=== PATIENT | female | born 1975 | race Asian ===

== ENCOUNTER 2017-05-27 15:43 | Emergency (ER) | payer OTHER ==
[2017-05-27 15:50] VITALS: BP 158/106
--- NOTE | 2017-05-27 16:05 | ED Physician Documentation ---
History of Present Illness - Stated complaint Stated Complaint: HIGH BP - Chief complaint Chief Complaint: General - History obtained from History obtained from: Patient - History of Present Illness Timing: Other (41-year-old with benign medical history was referred from the gynecology clinic for asymptomatic high blood pressure. Over the last few days has had blood pressures ranging from 140-160/100-110. There is no associated chest pain, shortness of breath, or headache.) Review of Systems Constitutional: reports: Fatigue. 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 : None HEENT: None Psych: None Musculoskeletal: None Derm: None - Past Surgical History Past Surgical History: No - Present Medications Home Medications: Ambulatory Orders Medication Instructions Recorded Confirmed No Known Home Medications [No 05/27/17 05/27/17 Known Home Medications] - Allergies Allergies/Adverse Reactions: Allergies Allergy/AdvReac Type Severity Reaction Status Date / Time No Known Drug Allergies Allergy Verified 02/07/16 00:45 - Social History Does the pt smoke?: No Smoking Status: Never smoker Does the pt drink ETOH?: No Does the pt have substance abuse?: No - Immunizations Immunizations are current?: No - POLST Patient has POLST: No PD ED PE NORMAL - Vitals Vital signs reviewed: Yes - General General: Alert and oriented X 3, No acute distress - Neck Neck: Supple, no meningeal sign, No bony TTP - Cardiac Cardiac: RRR, No murmur - Respiratory Respiratory: Clear bilaterally - Extremities Extremities: No edema, No calf tenderness / cord - Neuro Neuro: Alert and oriented X 3, Normal speech - Psych Psych: Normal mood, Normal affect Results - Vitals Vitals: Vital Signs - 24 hr 05/27/17 15:47 Temperature 36.9 C Heart Rate 99 Respiratory 18 Rate Blood Pressure 158/106 H O2 Saturation 99 Oxygen O2 Source Room air - EKG (time done) 1614 Rate: Rate (enter#) (97) Rhythm: NSR [place]: Normal Intervals: Normal [place] QRS: Normal Ischemia: Normal ST segments Computer interpretation: Agree with computer - Labs Labs: Laboratory Tests 05/27/17 05/27/17 16:19 16:19 Sodium 136 Potassium 3.4 L Chloride 101 Carbon Dioxide 24 Anion Gap 11.0 BUN 11 Creatinine 0.5 Estimated GFR (MDRD) 137 Glucose 97 Calcium 8.7 Total Bilirubin 0.6 AST 16 ALT 14 Alkaline Phosphatase 45 Total Protein 8.1 Albumin 4.5 Globulin 3.6 Albumin/Globulin Ratio 1.3 Lipase 21 L Serum HCG, Qual NEGATIVE Departure - Departure Disposition: Home, Self Care Clinical Impression: Elevated blood pressure reading Condition: Good Record reviewed to determine appropriate education?: Yes Instructions: Hypertension Control Comments: Take your blood pressure once a day for the next week or so. If it remains high follow-up with your doctor. You only need to return the emergency department if you develop significant symptoms including chest pain or trouble breathing.
[2017-05-27 16:38] LABS: ALBUMIN 4.5 g/dL (3.2-5.5); ALBUMIN/GLOBULIN RATIO 1.3 (1.0-2.2); BILIRUBIN,TOTAL 0.6 mg/dL (0.2-1.0); CALCIUM 8.7 mg/dL (8.5-10.3); CREATININE 0.5 mg/dL (0.4-1.0); TOTAL PROTEIN 8.1 g/dL (6.7-8.2)
[2017-05-27 17:15] LABS: HCG,QUALITATIVE BLOOD NEGATIVE
== END 2017-05-27 17:24 | disposition home or self-care (01) ==
LOC: ED 15:43
DX: R03.0 Elevated blood-pressure reading, without diagnosis of hypertension (principal)
CPT/HCPCS: 36415; 80053; 83690; 84703; 93005; 99282; 99283

== ENCOUNTER 2017-09-09 17:13 | Emergency (ER) | payer OTHER ==
[2017-09-09] MEDS ORDERED: SODIUM CHLORIDE 0.9% 1,000 ML IV ONE (17:28)
--- NOTE | 2017-09-09 17:43 | ED Physician Documentation ---
History of Present Illness - Stated complaint Stated Complaint: FEMALE BLEEDING/LIGHTHEADED - Chief complaint Chief Complaint: General - History obtained from History obtained from: Patient - History of Present Illness Timing: How many days ago (5) Pain level max: 0 Pain level now: 0 Improved by: nothing Worsened by: nothing - Additonal information Additional information: states heavy vaginal bleeding for 5 days. felt lightheaded today. States LMP was 4/17, then had bleeding at the end of August, but light spotting. Now heavy bleeding for 5 days. Currently feeling better. No vomting. No abd pain. No back pain. not on control. 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 : None HEENT: None Psych: None Musculoskeletal: None Derm: None - Past Surgical History Past Surgical History: No - Present Medications Home Medications: Ambulatory Orders Medication Instructions Recorded Confirmed No Known Home Medications [No 05/27/17 05/27/17 Known Home Medications] - Allergies Allergies/Adverse Reactions: Allergies Allergy/AdvReac Type Severity Reaction Status Date / Time No Known Drug Allergies Allergy Verified 02/07/16 00:45 - Social History Does the pt smoke?: No Smoking Status: Never smoker Does the pt drink ETOH?: No Does the pt have substance abuse?: No - Immunizations Immunizations are current?: No - POLST Patient has POLST: No PD ED PE NORMAL - Vitals Vital signs reviewed: Yes - General General: Alert and oriented X 3, No acute distress - HEENT HEENT: PERRL, Moist mucous membranes - Neck Neck: Supple, no meningeal sign - Cardiac Cardiac: RRR, Strong equal pulses - Respiratory Respiratory: No respiratory distress, Clear bilaterally - Abdomen Abdomen: Soft, Non tender, Non distended - Female Female : Pt declined - Derm Derm: Warm and dry - Extremities Extremities: No edema - Neuro Neuro: Alert and oriented X 3 - Psych Psych: Normal mood, Normal affect Results - Vitals Vitals: Vital Signs - 24 hr 09/09/17 09/09/17 09/09/17 17:20 17:48 19:35 Temperature 36.8 C 36.9 C 37.0 C Heart Rate 103 H 100 94 Respiratory 18 18 16 Rate Blood Pressure 131/75 H 131/91 H 122/86 H O2 Saturation 100 100 100 Oxygen O2 Source Room air - Labs Labs: Laboratory Tests 09/09/17 09/09/17 09/09/17 17:45 17:46 17:46 WBC 8.7 RBC 3.14 L Hgb 10.3 L Hct 29.8 L MCV 94.9 MCH 32.7 H MCHC 34.5 RDW 12.1 Plt Count 370 MPV 8.2 Neut # (Auto) 4.7 Lymph # (Auto) 3.3 [place] # (Auto) 0.5 Eos # (Auto) 0.2 Baso # (Auto) 0.1 Absolute Nucleated RBC 0.00 Nucleated RBC % 0.0 Sodium Potassium Chloride Carbon Dioxide Anion Gap BUN Creatinine Estimated GFR (MDRD) Glucose Calcium Total Bilirubin AST ALT Alkaline Phosphatase Total Protein Albumin Globulin Albumin/Globulin Ratio Lipase Urine Color RED/BLOODY Urine Clarity BLOODY Urine pH 5.0 Ur Specific [place] >=1.030 H Urine Protein 30 H Urine Glucose (UA) NEGATIVE Urine Ketones NEGATIVE Urine Occult Blood LARGE H Urine Nitrite NEGATIVE Urine Bilirubin NEGATIVE Urine Urobilinogen 0.2 (NORMAL) Ur Leukocyte Esterase NEGATIVE Urine RBC TNTC H Urine WBC 0-3 Ur Squamous Epith Cells RARE Squamous Urine Bacteria None Seen Ur Microscopic Review INDICATED Urine Culture Comments NOT INDICATED Urine HCG, Qual NEGATIVE Blood Type AB POSITIVE Antibody Screen NEGATIVE 09/09/17 17:46 WBC RBC Hgb Hct MCV MCH MCHC RDW Plt Count MPV Neut # (Auto) Lymph # (Auto) [place] # (Auto) Eos # (Auto) Baso # (Auto) Absolute Nucleated RBC Nucleated RBC % Sodium 135 Potassium 3.6 Chloride 101 Carbon Dioxide 26 Anion Gap 8.0 BUN 11 Creatinine 0.7 Estimated GFR (MDRD) 92 Glucose 115 H Calcium 8.7 Total Bilirubin 0.4 AST 19 ALT 17 Alkaline Phosphatase 44 Total Protein 7.2 Albumin 3.7 Globulin 3.5 Albumin/Globulin Ratio 1.1 Lipase 34 Urine Color Urine Clarity Urine pH Ur Specific [place] Urine Protein Urine Glucose (UA) Urine Ketones Urine Occult Blood Urine Nitrite Urine Bilirubin Urine Urobilinogen Ur Leukocyte Esterase Urine RBC Urine WBC Ur Squamous Epith Cells Urine Bacteria Ur Microscopic Review Urine Culture Comments Urine HCG, Qual Blood Type Antibody Screen PD MEDICAL DECISION MAKING - ED course Complexity details: reviewed results, re-evaluated patient, considered differential, d/w patient, d/w family ED course: Patient is a 42-year-old female with dysfunctional uterine bleeding. Bleeding decreased in the emergency department and she declines a pelvic examination at this time. Mild anemia, but not close to transfusion levels. No recurrent lightheadedness or dizziness. We did discuss starting possible progesterone to help with the bleeding, she declines this at this time. 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 Patient counseled regarding signs and symptoms for which I believe and urgent re-evaluation would be necessary. Patient with good understanding of and agreement to plan and is comfortable going home at this time This document was made in part using voice recognition software. While efforts are made to proofread this document, sound alike and grammatical errors may occur. - Sepsis Event Vital Signs: Vital Signs - 24 hr 09/09/17 09/09/17 09/09/17 17:20 17:48 19:35 Temperature 36.8 C 36.9 C 37.0 C Heart Rate 103 H 100 94 Respiratory 18 18 16 Rate Blood Pressure 131/75 H 131/91 H 122/86 H O2 Saturation 100 100 100 Oxygen O2 Source Room air Departure - Departure Disposition: 01 Home, Self Care Clinical Impression: Dysfunctional uterine bleeding Condition: Good Instructions: ED Bleed Irregular Vaginal Follow-Up: your,doctor in 3 days if not better [Other] Comments: The bleeding should decrease over the next few days. Return if you worsen including worsening lightheadedness, any difficulty walking or breathing. Follow-up closely with your doctor. Discharge Date/Time: 09/09/17 19:35
[2017-09-09 17:52] LABS: BILIRUBIN,URINE NEGATIVE (NEGATIVE); GLUCOSE, URINE (UA) NEGATIVE (NEGATIVE); KETONES,URINE (UA) NEGATIVE (NEGATIVE); LEUKOCYTE ESTERASE, URINE NEGATIVE (NEGATIVE); NITRITE,URINE NEGATIVE (NEGATIVE); OCCULT BLOOD,URINE LARGE (NEGATIVE); PROTEIN,URINE 30 mg/dL (NEGATIVE); UROBILINOGEN,URINE 0.2 (NORMAL) E.U./dL (NORMAL)
[2017-09-09 17:55] LABS: CLARITY,URINE BLOODY (CLEAR); HCG UR QUAL NEGATIVE
[2017-09-09 17:58] LABS: BACTERIA,URINE None Seen /HPF (None Seen); RBC,URINE TNTC /HPF (0-5); SQUAMOUS EPITHELIAL CELL,UR RARE Squamous (<= Few)
[2017-09-09 18:06] LABS: BASOPHILS # (AUTO) 0.1 10^3/uL (0.0-0.1); BASOPHILS % (AUTO) 0.7 %; EOSINOPHILS # (AUTO) 0.2 10^3/uL (0.0-0.7); EOSINOPHILS % (AUTO) 2.3 %; HGB - HEMOGLOBIN 10.3 g/dL (12.0-16.0); LYMPHOCYTES # (AUTO) 3.3 10^3/uL (1.5-3.5); MEAN CORPUSCULAR HEMOGLOBIN 32.7 pg (27.0-31.0); MEAN CORPUSCULAR HGB CONC 34.5 g/dL (32.0-36.0); MEAN CORPUSCULAR VOLUME 94.9 fL (81.0-99.0); MEAN PLATELET VOLUME 8.2 fL (7.9-10.8); MONOCYTES # (AUTO) 0.5 10^3/uL (0.0-1.0); MONOCYTES % (AUTO) 5.3 %; NEUTROPHILS # (AUTO) 4.7 10^3/uL (1.5-6.6); NEUTROPHILS % (AUTO) 53.7 %; PLT - PLATELET COUNT 370 10^3/uL (130-450); RED BLOOD COUNT 3.14 10^6/uL (4.20-5.40); RED CELL DISTRIBUTION WIDTH 12.1 % (12.0-15.0); WHITE BLOOD COUNT 8.7 x10^3/uL (4.8-10.8)
[2017-09-09 18:18] LABS: ALBUMIN 3.7 g/dL (3.2-5.5); ALBUMIN/GLOBULIN RATIO 1.1 (1.0-2.2); BILIRUBIN,TOTAL 0.4 mg/dL (0.2-1.0); CALCIUM 8.7 mg/dL (8.5-10.3); CREATININE 0.7 mg/dL (0.4-1.0); TOTAL PROTEIN 7.2 g/dL (6.7-8.2)
[2017-09-09 19:36] VITALS: BP 122/86
== END 2017-09-09 19:35 | disposition home or self-care (01) ==
LOC: ED 17:13
DX: N93.8 Other specified abnormal uterine and vaginal bleeding (principal); J45.909 Unspecified asthma, uncomplicated
CPT/HCPCS: 36415; 80053; 81001; 81003; 81025; 83690; 85025; 86850; 86900; 86901; 87086; 96360; 99283

== ENCOUNTER 2018-06-19 12:21 | Emergency (ER) | payer OTHER ==
[2018-06-19 14:37] LABS: HGB - HEMOGLOBIN 12.4 g/dL (12.0-16.0); MEAN CORPUSCULAR HEMOGLOBIN 32.4 pg (27.0-31.0); MEAN CORPUSCULAR HGB CONC 34.8 g/dL (32.0-36.0); MEAN CORPUSCULAR VOLUME 93.1 fL (81.0-99.0); MEAN PLATELET VOLUME 8.1 fL (7.9-10.8); RED BLOOD COUNT 3.82 10^6/uL (4.20-5.40); RED CELL DISTRIBUTION WIDTH 11.8 % (12.0-15.0)
[2018-06-19 14:57] LABS: HCG,QUALITATIVE BLOOD NEGATIVE
[2018-06-19] MEDS ORDERED: SODIUM CHLORIDE 0.9% 1,000 ML IV ONE (16:53)
[2018-06-19] MEDS ORDERED: KETOROLAC 15 MG/ML VIAL IVP STA (16:54)
[2018-06-19 17:08] LABS: BILIRUBIN,URINE NEGATIVE (NEGATIVE); GLUCOSE, URINE (UA) NEGATIVE (NEGATIVE); KETONES,URINE (UA) NEGATIVE (NEGATIVE); LEUKOCYTE ESTERASE, URINE NEGATIVE (NEGATIVE); NITRITE,URINE NEGATIVE (NEGATIVE); OCCULT BLOOD,URINE MODERATE (NEGATIVE); PH,URINE 6.5 PH (5.0-7.5); PROTEIN,URINE NEGATIVE (NEGATIVE); UROBILINOGEN,URINE 0.2 (NORMAL) E.U./dL (NORMAL)
[2018-06-19 17:17] LABS: CLARITY,URINE CLEAR (CLEAR)
[2018-06-19 17:20] LABS: BACTERIA,URINE None Seen /HPF (None Seen); RBC,URINE None Seen /HPF (0-5); SQUAMOUS EPITHELIAL CELL,UR RARE Squamous (<= Few)
[2018-06-19 17:26] LABS: ALBUMIN 4.3 g/dL (3.2-5.5); ALBUMIN/GLOBULIN RATIO 1.3 (1.0-2.2); BILIRUBIN,TOTAL 0.6 mg/dL (0.2-1.0); CALCIUM 8.7 mg/dL (8.5-10.3); CREATININE 0.6 mg/dL (0.4-1.0); TOTAL PROTEIN 7.5 g/dL (6.7-8.2)
--- NOTE | 2018-06-19 19:25 | ED Physician Documentation ---
PD HPI FEMALE - Stated complaint Stated Complaint: FEMALE /BLEEDING - Chief complaint Chief Complaint: Abd Pain - Additional information Additional information: 42-year-old female presents the emergency department with vaginal bleeding which she describes is very heavy. Patient does have a history of recurrent heavy vaginal bleeding but today was worse. The patient denies weakness, dizziness or lightheadedness. No other associated symptoms. The patient has had some suprapubic cramping. Symptoms are described as moderate. The patient denies any new sexual contacts or concerns for sexually transmitted disease. Review of Systems Constitutional: denies: Fever, Chills Eyes: denies: Discharge Ears: denies: Ear pain Nose: denies: Congestion Throat: denies: Sore throat Cardiac: denies: Chest pain / pressure Respiratory: denies: Cough GI: denies: Abdominal Pain : reports: Hematuria. 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 : None HEENT: None Psych: None Musculoskeletal: None Derm: None - Past Surgical History Past Surgical History: No - Present Medications Home Medications: Ambulatory Orders Medication Instructions Recorded Confirmed Lisinopril 1 tab ORAL DAILY 06/19/18 06/19/18 - Allergies Allergies/Adverse Reactions: Allergies Allergy/AdvReac Type Severity Reaction Status Date / Time No Known Drug Allergies Allergy Verified 06/19/18 13:23 - Social History Does the pt smoke?: No Smoking Status: Never smoker Does the pt drink ETOH?: No Does the pt have substance abuse?: No - Immunizations Immunizations are current?: No - POLST Patient has POLST: No PD ED PE NORMAL - General General: Alert and oriented X 3, No acute distress - HEENT HEENT: Atraumatic, PERRL, EOMI, Ears normal - Neck Neck: Supple, no meningeal sign - Cardiac Cardiac: RRR, Strong equal pulses - Respiratory Respiratory: No respiratory distress - Abdomen Abdomen: Soft, Non tender - Female Female : Other (There appears to be a IUD string out of the cervix, there is no bleeding from the cervix presently. There is blood in the vaginal vault. No active bleeding.) - Derm Derm: Normal color - Extremities Extremities: No deformity - Neuro Neuro: Alert and oriented X 3, Normal speech - Psych Psych: Normal affect Results - Vitals Vitals: Vital Signs - 24 hr 06/19/18 06/19/18 06/19/18 13:19 16:19 19:09 Temperature 37 C Heart Rate 100 110 H 82 Respiratory 16 18 16 Rate Blood Pressure 133/89 H 149/100 H 109/79 O2 Saturation 100 100 100 Oxygen O2 Source Room air - Labs Labs: Laboratory Tests 06/19/18 06/19/18 06/19/18 14:25 14:25 16:53 WBC 8.0 RBC 3.82 L Hgb 12.4 Hct 35.5 L MCV 93.1 MCH 32.4 H MCHC 34.8 RDW 11.8 L Plt Count 329 MPV 8.1 Sodium Potassium Chloride Carbon Dioxide Anion Gap BUN Creatinine Estimated GFR (MDRD) Glucose Calcium Total Bilirubin AST ALT Alkaline Phosphatase Total Protein Albumin Globulin Albumin/Globulin Ratio Lipase Serum HCG, Qual NEGATIVE Urine Color LT. YELLOW Urine Clarity CLEAR Urine pH 6.5 Ur Specific [place] <=1.005 Urine Protein NEGATIVE Urine Glucose (UA) NEGATIVE Urine Ketones NEGATIVE Urine Occult Blood MODERATE H Urine Nitrite NEGATIVE Urine Bilirubin NEGATIVE Urine Urobilinogen 0.2 (NORMAL) Ur Leukocyte Esterase NEGATIVE Urine RBC None Seen Urine WBC 0-3 Ur Squamous Epith Cells RARE Squamous Urine Bacteria None Seen Ur Microscopic Review INDICATED Urine Culture Comments NOT INDICATED 06/19/18 17:08 WBC RBC Hgb Hct MCV MCH MCHC RDW Plt Count MPV Sodium 138 Potassium 3.7 Chloride 104 Carbon Dioxide 26 Anion Gap 8.0 BUN 10 Creatinine 0.6 Estimated GFR (MDRD) 110 Glucose 111 H Calcium 8.7 Total Bilirubin 0.6 AST 16 ALT 14 Alkaline Phosphatase 45 Total Protein 7.5 Albumin 4.3 Globulin 3.2 Albumin/Globulin Ratio 1.3 Lipase 31 Serum HCG, Qual Urine Color Urine Clarity Urine pH Ur Specific [place] Urine Protein Urine Glucose (UA) Urine Ketones Urine Occult Blood Urine Nitrite Urine Bilirubin Urine Urobilinogen Ur Leukocyte Esterase Urine RBC Urine WBC Ur Squamous Epith Cells Urine Bacteria Ur Microscopic Review Urine Culture Comments - Rads (name of study) US Pelvic Radiology: Final report received, See rad report (IMPRESSION: 1. Normal thickness endometrium with no IUD identified. 2. Heterogeneous uterus with multiple fibroids. ) PD MEDICAL DECISION MAKING - ED course ED course: Presently, the patient appears appropriate for discharge with ongoing outpatient management. I [place] The patient understands and agrees. I discussed warning signs and recommended returning to the emergency department for any worsening or concerns. Departure - Departure Disposition: Home, Self Care Clinical Impression: Vaginal bleeding, Fibroids Condition: Good Instructions: ED Fibroids, ED Bleed Irregular Vaginal Follow-Up: TIFFANY Yates [Provider Group] - Within 1 week (Please follow-up with your primary care and [place] of your symptoms) Comments: Please return to the emergency department for any worsening or any concerns
--- NOTE | 2018-06-19 19:28 | Ultrasound Report ---
Reason: pelvic pain, vaginal bleeding Procedure Date: 06/19/2018 Accession Number: [id number] / [id number] Procedure: US - Pelvic w/Transvag+Doppler Comp CPT Code: FULL RESULT: EXAM: PELVIC ULTRASOUND EXAM DATE: 06/19/2018 05:41 PM. CLINICAL HISTORY: Pelvic pain. Vaginal bleeding. Mirena placed 7 months ago. COMPARISON: None. TECHNIQUE: Realtime transabdominal pelvic scan performed to identify the uterus and adnexa and as an overview of other pelvic structures, followed by transvaginal scan to provide greater detail of the uterus and adnexa, with static image documentation. FINDINGS: Uterus: 8.7 x 4.7 x 6.2 cm, volume 132 cc. Anteverted position. Normal overall size . Heterogeneous echotexture. Masses: Fibroids, right fundal anechoic with halo 1.6 x 1.6 x 2.0 cm, posterior hypoechoic with echogenic foci 1.1 x 0.7 x 0.9 cm, anterior fundal left 1.9 x 1.3 x 1.7 cm. Endometrium: 7 mm. Normal. No IUD identified. Cervix: Unremarkable. Right Ovary: 2.8 x 1.5 x 2.2 cm, volume 4.8 cc. Normal echotexture and blood flow. Left Ovary: 2.7 x 1.5 x 1.9 cm, volume 4.0 cc. Normal echotexture and blood flow. Free Fluid: Small amount. Other: Extrauterine cyst posterior to the lower uterine segment 0.8 x 0.8 x 0.9 cm. IMPRESSION: 1. Normal thickness endometrium with no IUD identified. 2. Heterogeneous uterus with multiple fibroids. RADIA
[2018-06-19 20:27] VITALS: BP 126/82
== END 2018-06-19 20:28 | disposition home or self-care (01) ==
LOC: ED 12:21
DX: N93.9 Abnormal uterine and vaginal bleeding, unspecified (principal); D25.9 Leiomyoma of uterus, unspecified; Z97.5 Presence of (intrauterine) contraceptive device
CPT/HCPCS: 36415; 76830; 76856; 80053; 81001; 81003; 83690; 84703; 85027; 87086; 93975; 96361; 96374; 99283; 99284

== ENCOUNTER 2018-09-06 21:13 | Emergency (ER) | payer OTHER ==
--- NOTE | 2018-09-06 21:30 | ED Physician Documentation ---
PD HPI CHEST PAIN - Stated complaint Stated Complaint: CHEST PAIN - Chief complaint Chief Complaint: Cardiac - History obtained from History obtained from: Patient - History of Present Illness Timing - onset: Today (this morning) Timing - onset during: Rest Timing - duration: Hours Timing - details: Gradual onset Pain level now: 6 Quality: Pain Location: Left chest Radiation: Left upper extremity Improved by: Nothing Worsened by: Other (no exacerbating factors) Associated symptoms: Shortness of air. No: Diaphoresis, Nausea, Vomiting, General Weakness, Palpitations, Cough Similar symptoms before: Has not had sx before Recently seen: Not recently seen - Additional information Additional information: episodic left chest pain, described as pressure but at times burning, since approximately 10 AM. Initial episode was while eating breakfast, but she has had this discomfort recurrently during the day, sometimes radiating to LUE and associated with dyspnea. No exertional component. Denies h/o similar discomfort. She took Gaviscon this evening thinking it could be heartburn but there was no change in symptoms. Review of Systems Constitutional: reports: Reviewed and negative Eyes: reports: Reviewed and negative Ears: reports: Reviewed and negative Nose: reports: Reviewed and negative Throat: reports: Reviewed and negative Cardiac: reports: Chest pain / pressure. denies: Palpitations, Pedal edema, Calf pain Respiratory: reports: Dyspnea. 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 : None HEENT: None Psych: None Musculoskeletal: None Derm: None - Past Surgical History Past Surgical History: No - Present Medications Home Medications: Ambulatory Orders Medication Instructions Recorded Confirmed Lisinopril 20 mg ORAL DAILY 06/19/18 06/19/18 - Allergies Allergies/Adverse Reactions: Allergies Allergy/AdvReac Type Severity Reaction Status Date / Time No Known Drug Allergies Allergy Verified 09/06/18 23:00 - Social History Does the pt smoke?: No Smoking Status: Never smoker Does the pt drink ETOH?: No Does the pt have substance abuse?: No - Immunizations Immunizations are current?: No - POLST Patient has POLST: No PD ED PE NORMAL - Vitals Vital signs reviewed: Yes - General General: Alert and oriented X 3, No acute distress, Well developed/nourished - HEENT HEENT: Moist mucous membranes - Neck Neck: Supple, no meningeal sign - Cardiac Cardiac: RRR, No murmur, No gallop, No rub - Respiratory Respiratory: No respiratory distress, Clear bilaterally - Abdomen Abdomen: Soft, Non tender - Back Back: No CVA TTP - Derm Derm: Normal color, Warm and dry - Extremities Extremities: No edema Results - Vitals Vitals: Vital Signs - 24 hr 09/06/18 09/06/18 09/06/18 21:16 21:27 22:02 Temperature 36.6 C Heart Rate 97 100 74 Respiratory 16 18 14 Rate Blood Pressure 170/96 H 115/58 L O2 Saturation 100 100 09/06/18 09/06/18 09/07/18 22:59 23:32 00:04 Temperature 36.6 C Heart Rate 78 97 100 Respiratory 17 19 21 Rate Blood Pressure 112/77 144/97 H 132/96 H O2 Saturation 100 100 100 Oxygen O2 Source Room air - EKG (time done) No standard instances Rate: Rate (enter#) (97) Rhythm: NSR [place]: Normal Intervals: Normal [place] QRS: Normal Ischemia: Normal ST segments, T wave inversion (V2-V4) Compare to prior EKG: Changed from prior EKG (T wave inversions are new compared to May 2017 EKG) - Labs Labs: Laboratory Tests 09/06/18 09/06/18 09/06/18 22:00 22:00 22:00 WBC 7.9 RBC 4.37 Hgb 13.8 Hct 40.3 MCV 92.2 MCH 31.4 H MCHC 34.1 RDW 12.0 Plt Count 354 MPV 8.3 Neut # (Auto) 3.7 Lymph # (Auto) 3.3 [place] # (Auto) 0.6 Eos # (Auto) 0.3 Baso # (Auto) 0.1 Absolute Nucleated RBC 0.00 Nucleated RBC % 0.0 Sodium 136 Potassium 3.4 L Chloride 101 Carbon Dioxide 27 Anion Gap 8.0 BUN 10 Creatinine 0.6 Estimated GFR (MDRD) 110 Glucose 106 H Calcium 8.9 Total Bilirubin 0.5 AST 17 ALT 14 Alkaline Phosphatase 46 Troponin I < 0.04 Total Protein 8.0 Albumin 4.3 Globulin 3.7 Albumin/Globulin Ratio 1.2 Lipase 38 - Rads (name of study) chest xray Radiology: Prelim report reviewed, See rad report PD MEDICAL DECISION MAKING - ED course Complexity details: reviewed old records, reviewed results, re-evaluated patient, considered differential, d/w patient ED course: D/W Dr. Castillo (cardiology mental health consultant at [facility]), agrees patient would be appropriate for admission for echo and ST. D/W Dr. Lim, hospitalist at [facility], accepts transfer. Departure - Departure Disposition: 02 Transfer Acute Care Hosp Clinical Impression: Chest pain Qualifiers: Chest pain type: unspecified Qualified Code(s): R07.9 - Chest pain, unspecified Condition: Good Discharge Date/Time: 09/07/18 00:52
--- NOTE | 2018-09-06 22:13 | XRAY Report ---
Reason: chest pain Procedure Date: 09/06/2018 Accession Number: [id number] / [id number] Procedure: XR - Chest 2 View X-Ray CPT Code: 27642 FULL RESULT: EXAM: CHEST RADIOGRAPHY EXAM DATE: 09/06/2018 09:46 PM. CLINICAL HISTORY: Chest pain. Left shoulder pain COMPARISON: None. TECHNIQUE: 2 views. FINDINGS: Lungs/Pleura: No focal opacities evident. No pleural effusion. No pneumothorax. Normal volumes. Mediastinum: Heart and mediastinal contours are unremarkable. Other: None. IMPRESSION: Normal 2-view chest radiography. RADIA
[2018-09-06 22:17] LABS: BASOPHILS # (AUTO) 0.1 10^3/uL (0.0-0.1); BASOPHILS % (AUTO) 1.1 %; EOSINOPHILS # (AUTO) 0.3 10^3/uL (0.0-0.7); EOSINOPHILS % (AUTO) 3.2 %; HGB - HEMOGLOBIN 13.8 g/dL (12.0-16.0); LYMPHOCYTES # (AUTO) 3.3 10^3/uL (1.5-3.5); LYMPHOCYTES % (AUTO) 41.5 %; MEAN CORPUSCULAR HEMOGLOBIN 31.4 pg (27.0-31.0); MEAN CORPUSCULAR HGB CONC 34.1 g/dL (32.0-36.0); MEAN CORPUSCULAR VOLUME 92.2 fL (81.0-99.0); MEAN PLATELET VOLUME 8.3 fL (7.9-10.8); MONOCYTES # (AUTO) 0.6 10^3/uL (0.0-1.0); MONOCYTES % (AUTO) 7.3 %; NEUTROPHILS # (AUTO) 3.7 10^3/uL (1.5-6.6); NEUTROPHILS % (AUTO) 46.9 %; PLT - PLATELET COUNT 354 10^3/uL (130-450); RED BLOOD COUNT 4.37 10^6/uL (4.20-5.40); WHITE BLOOD COUNT 7.9 x10^3/uL (4.8-10.8)
[2018-09-06 22:30] LABS: ALBUMIN 4.3 g/dL (3.2-5.5); ALBUMIN/GLOBULIN RATIO 1.2 (1.0-2.2); BILIRUBIN,TOTAL 0.5 mg/dL (0.2-1.0); CALCIUM 8.9 mg/dL (8.5-10.3); CREATININE 0.6 mg/dL (0.4-1.0)
[2018-09-06] MEDS ORDERED: NITROGLYCERIN 2% PASTE TOP STA (23:36)
[2018-09-06] MEDS ORDERED: ASPIRIN CHEW 81 MG TABLET PO STA (23:36)
[2018-09-06] MEDS ORDERED: METOPROLOL TARTRATE 50 MG TABLET PO STA (23:41)
[2018-09-07 00:05] VITALS: BP 132/96
== END 2018-09-07 00:52 | disposition short-term general hospital (02) ==
LOC: ED 21:13
DX: R07.9 Chest pain, unspecified (principal); R94.31 Abnormal electrocardiogram [ECG] [EKG]
CPT/HCPCS: 36415; 71046; 80053; 83690; 84484; 85025; 93005; 99284; A9270

== ENCOUNTER 2018-09-07 00:55 | Outpatient (CLI) | payer OTHER | END 2018-09-07 00:56 | disposition short-term general hospital (02) | LOC: EMS 00:55 | PROVIDERS: ATTEND Surgery | DX: R07.9 Chest pain, unspecified (principal) | CPT/HCPCS: A0425; A0426 ==

== ENCOUNTER 2018-09-25 07:55 | Day surgery (SDC) | payer OTHER ==
[2018-09-25] MEDS ORDERED: DOXYCYCLINE INJ 100 MG in SODIUM CHLORIDE 0.9% MINIBAG 100 ML IV ONE (07:56)
[2018-09-25 08:31] LABS: HCG UR QUAL NEGATIVE
[2018-09-25] MEDS ORDERED: LACTATED RINGERS 1,000 ML IV ONE (08:40)
[2018-09-25] MEDS ORDERED: SILVER NITRATE APPLICATOR TOP ONE (08:42)
[2018-09-25] MEDS ORDERED: LIDOCAINE MPF 2%-EPI 1:200000 20 ML VIAL ONE (08:42)
[2018-09-25] MEDS ORDERED: VASOPRESSIN 20 UNIT/ML VIAL ONE ×2 (08:43→08:44)
--- NOTE | 2018-09-25 08:46 | ANESTHESIA ---
Pre-Anesthesia VS, & Labs - Diagnosis abnormal uterine bleeding - Procedure hysterscopy, endometrial ablation, D&C, submucosal myomectomy, removal IUD Vital Signs: Temp Pulse Resp BP Pulse Ox 36.4 C L 77 16 129/86 H 100 09/25/18 08:23 09/25/18 08:23 09/25/18 08:23 09/25/18 08:23 09/25/18 08:23 Height 5 ft 2.99 in Weight (kg) 58.2 kg Body Mass Index 23.2 - NPO >8 hours - Is Patient ?: No Home Medications and Allergies Home Medications: Ambulatory Orders Albuterol Sulfate [Proair Hfa Inhaler] 1 - 2 puffs INH Q4H PRN 09/19/18 Lisinopril 10 mg PO 09/19/18 Mag Carb/Al Hydrox/Alginic AC [Gaviscon Extra Strength Liquid] 355 ml PO PRN 09/19/18 Albuterol Sulfate [Proair Hfa Inhaler] 1 - 2 puffs INH Q4H PRN 09/19/18 Lisinopril 10 mg PO 09/19/18 Mag Carb/Al Hydrox/[place] AC [Gaviscon Extra Strength Liquid] 355 ml PO PRN 09/19/18 Allergies/Adverse Reactions: Allergies Allergy/AdvReac Type Severity Reaction Status Date / Time No Known Drug Allergies Allergy Verified 09/19/18 09:19 Anes History & Medical History - Anesthetic History Family history of Anesthesia Complications: Denies Family history of Malignant Hyperthermia: Denies - Medical History Cardiovascular: reports: Hypertension, Other (Had negative cardiac workup 09/2018) Pulmonary: reports: None Gastrointestinal: reports: GERD Urinary: reports: Other Neuro: reports: None Musculoskeletal: reports: None Endocrine/Autoimmune: reports: None Blood Disorders: reports: None Skin: reports: None Smoking Status: Never smoker Psychosocial: reports: No issues indicated - Surgical History General: EGD Gynecologic: Other (Removal of breast cyst) Exam General: Alert, Oriented x3, Cooperative, No acute distress Dental: WNL Mouth Openin Fingerbreadth Neck Mobility: Normal Mallampati classification: II Thyromental Distance: 4-6 cm Respiratory: Lungs clear, Normal breath sounds, No respiratory distress, No accessory muscle use Cardiovascular: Regular rate, Normal S1, Normal S2, No murmurs Mental/Cognitive Status: Alert/Oriented X3, Normal for patient Plan Anesthesia Type: General Consent for Procedure(s) Verified and Reviewed: Yes Code Status: Attempt Resuscitation ASA classification: 2-Mild systemic disease Is this case an emergency?: No
[2018-09-25] MEDS ORDERED: DOXYCYCLINE 100 MG TABLET PO ONE (11:12)
[2018-09-25] MEDS ORDERED: ONDANSETRON 4 MG/2 ML VIAL IVP ONE (11:12)
[2018-09-25] MEDS ORDERED: LIDOCAINE-MPF 2% 5 ML VIAL IM ONE (11:12)
[2018-09-25] MEDS ORDERED: KETOROLAC 30 MG/ML VIAL IVP ONE (11:12)
[2018-09-25] MEDS ORDERED: fentaNYL 100 MCG/2 ML VIAL IVP ONE (11:12)
[2018-09-25] MEDS ORDERED: MIDAZOLAM 2 MG/2 ML VIAL IVP ONE (11:12)
[2018-09-25] MEDS ORDERED: PROPOFOL 200 MG/20 ML VIAL IVP ONE (11:12)
[2018-09-25] MEDS ORDERED: DEXAMETHASONE 4 MG/ML VIAL IVP ONE (11:12)
[2018-09-25] MEDS ORDERED: LIDOCAINE 2%-EPI 1:100000 20 ML MDV SUBQ ONE (11:38)
[2018-09-25] MEDS ORDERED: ONDANSETRON 4 MG/2 ML VIAL IVP PRN (11:39)
[2018-09-25] MEDS ORDERED: HYDROcod/ACETAM 10 MG/325 MG TABLET PO PRN (11:39)
--- NOTE | 2018-09-25 11:42 | OPERATIVE REPORT ---
Operative Report - General Procedure Date: 09/25/18 Planned Procedure: Hysteroscopy, Dilation and Curettage, Endometrial Ablation, Removal of Intrauterine Device, Possible hysteroscopic myomectomy or polypectomy Pre-Op Diagnosis: Abnormal uterine bleeding Procedure Performed: Hysteroscopy, Dilation and Curettage, Endometrial Ablation Post Op Diagnosis: DEANNA, Normal-appearing endometrial cavity - Procedure Note Primary Surgeon: Dr. Roxana Chapin Secondary Surgeon: None Anesthesia Provider: Dr. Angus Levin Anesthesia Technique: General LMA Pathology: 1. Endocervical curettings, 2. Endometrial curettings IV Fluids (mL): 900 Estimated Blood Loss (mL): 10 Urine Output (mL): 100 Indications: The patient is a 43-year-old 2, para 2, female here for surgical pal gement of bothersome abnormal uterine bleeding. She has frequent and heavy bleeding and is status post insertion of her Mirena intrauterine device (IUD) in November 2017 to help manage her symptoms. The IUD has not helped with her bleeding. She had a recent visit to the emergency room for heavy bleeding, and a pelvic ultrasound noted multiple, small fibroids; heterogeneous endometrial stripe; and no visibility of the intrauterine device. However, a pelvic exam in the emergency room reportedly did note the intrauterine device strings. She was then started on a control pill taper to manage bleeding. She had a normal, benign endometrial biopsy in November 2017. She reports the intrauterine device seem to help from November 2017 until June 2018, then she started bleeding since then, persistent but light. The June cycle itself was very heavy with clots, cramping, and back pain. July menses was again heavy but less than June cycle. She also reports her most recent cycle this month was a bit cornice maker. She has noted decreased energy and some dyspnea due to anemia. Given her history of abnormal bleeding she is desiring an endometrial ablation for long-term management of her bleeding. Additionally, given the presence of fibroids on the ultrasound, we discussed possible removal of fibroids to help with success of the ablation. The risks, benefits, limitations, alternatives, and expectations of surgery were discussed, and the consent was reviewed and signed prior to the date of surgery. Findings: Exam under anesthesia: The uterus was anteverted and approximately 8 weeks in size. No adnexal masses were palpable. Operative findings: The cervix was large and parous. The IUD strings were not readily seen at the cervical loss. Exploration with polyp forceps noted no IUD within the endometrial cavity. Placement of the hysteroscope into the endometrial cavity also noted no evidence of the IUD. It was not seen within the muscle of the wall or at any location within the uterus. The endometrial cavity overall appeared normal with a moderate amount of thickened endometrial tissue. The tubal ostia were seen bilaterally. A curettage was performed to remove tissue for pathology, as well as to improve visualization. After repeat inspection following the curettage, no polypoid or fibroid tissue was noted within the endometrial cavity. The endometrial cavity length was measured to be 5 cm, and the width was 4.8 cm. The endometrial ablation was performed for 1 minute, 31 seconds, to a power of 132 W. The hysteroscopic fluid deficit was 320 mL. Complications: None - Other Other Information/Narrative: Procedure: The patient was taken to the operating room, where general anesthesia with LMA was administered without difficulty. She was then positioned in the high dorsal lithotomy position with her lower extremities in [place] stirrups. An exam under anesthesia was then performed with the findings as noted above. Vagina and perineum were then prepped and draped in a sterile fashion, and an in-an-out catheterization was performed. Procedure Time-Out was then performed. A sterile bivalve speculum was then inserted into the vagina. The anterior lip of the cervix was grasped with a single toothed tenaculum. Two percent Lidocaine with epinephrine was injected at the 0200, 0400, 0700, and 1000 positions for a paracervical block. An attempt was made to sweep for the IUD; however, no IUD was found with the polyp forceps. An endocervical curettage was then performed, and the uterus sounded to 9 cm length with a cervical length of approximately 4 cm. The cervix was then serially dilated with Hegar dilators until the 30 degree diagnostic Myosure hysteroscope could be inserted. Using saline for distension, the endometrial cavity was visualized and appeared normal. A curettage was performed, sending tissue for specimen. The Novasure device was placed onto the field. The uterine cavity length and width were measured, and cavity assessment passed without concerns. The ablation was then performed for 91 sec to power of 132 Mukherjee. The device was then retracted and appeared to have successfully cauterized the cavity. The tenaculum was then removed from the cervix, and the tenaculum sites hemostatic with silver nitrate. The speculum was then removed. At this point the procedure was deemed complete. The patient was then replaced supine, awakened, extubated, and transferred to the PACU in stable condition. There were no complications. Sponge, lap, and needle count were correct x 3.
[2018-09-25] MEDS ORDERED: HYDROcod/ACETAM 10 MG/325 MG TABLET ONE (12:57)
[2018-09-25 13:20] VITALS: BP 122/71
== END 2018-09-25 07:56 | disposition home or self-care (01) ==
LOC: SDS 07:55
PROVIDERS: ATTEND Obstetrics & Gynecology
PROC: 0U5B8ZZ Destruction of Endometrium, Via Natural or Artificial Opening Endoscopic (ICD-10-PCS; principal; 2018-09-25 09:25)
PROC: 0UDB8ZZ Extraction of Endometrium, Via Natural or Artificial Opening Endoscopic (ICD-10-PCS; 2018-09-25 09:25)
DX: N93.9 Abnormal uterine and vaginal bleeding, unspecified (principal); D25.9 Leiomyoma of uterus, unspecified; I10 Essential (primary) hypertension
CPT/HCPCS: 58563; 81025; A9270; J7120